=== PATIENT | male | born 1945 | race Asian ===

== ENCOUNTER 2021-04-17 10:50 | Emergency (ER) | payer OTHER ==
[~2021-04-17] VITALS: Ht 152.4 cm; Wt 68.0 kg
[2021-04-17 11:06] VITALS: BP 138/78
[2021-04-17] MEDS ORDERED: AMOX1TAB11 PO (11:34)
--- NOTE | 2021-04-17 11:36 | PHYS DOC ---
Past Medical History Additional Past Medical Histor: hearing loss Past Surgical History: No Surgical History General Adult EDM: Chief Complaint: EARACHE/EAR PAIN HPI: HPI: Patient is a 76 year old male who presents with left ear pain. Patient is N epali speaking, but has family members at bedside who aided in providing history. Patient states he has had left ear pain for approximately 5 months. He attributed his pain secondary to dental infection. He had the infected tooth extracted 10 days ago, but has had persistent left-sided ear pain since. Patient denies fever, chills, general weakness, nasal congestion, sore throat, persistent dental pain, drainage from affected ear. Review of Systems: Review of Systems: Constitutional: See HPI Eyes: Denies change in visual acuity, visual field deficits or discharge HENT: See HPI Respiratory: Denies cough or shortness of breath Cardiovascular: Denies chest pain, palpitations or edema GI: Denies abdominal pain, nausea, vomiting, bloody stools or diarrhea : Denies dysuria or hematuria Musculoskeletal: Denies back pain or joint pain Integument: Denies rash or other skin lesion Neurologic: Denies headache, focal weakness or sensory changes Heart Score: C/O Chest Pain: No Allergies: Allergies: Allergies Coded Allergies Type Severity Reaction Last Updated Verified No Known Drug Allergies 04/17/21 No Physical Exam: PE: Constitutional: Well developed, well nourished, no acute distress, non-toxic appearance. HENT: Normocephalic, atraumatic, bilateral ear canals without erythema or discharge, right tympanic membrane perforated without evidence of infection or other trauma, left tympanic membrane bulging and erythematous, oropharynx moist, no oral exudates, nose normal. [] Eyes: EOMI, conjunctiva normal, no discharge. Neck: Normal range of motion, no tenderness, supple. Skin: Warm, dry, no erythema, no rash. Neurologic: Alert and oriented x4, steady and symmetrical upright gait, no focal deficits noted. Current Patient Data: Vital Signs: Vital Signs Date Time Temp Pulse Resp B/P (MAP) Pulse Ox O2 Delivery O2 Flow Rate FiO2 04/17/21 11:06 97.7 88 21 138/78 (98) 97 Room Air 97.7 Course & Med Decision Making: Course & Med Decision Making Pertinent Labs and Imaging studies reviewed. (See chart for details) Patient is a 76-year-old male who presents with several month history of left ear pain. Patient had a tooth extraction performed 10 days ago, but his ear pain persists. Right tympanic membrane found to be ruptured, though it is unclear if this is new or chronic. Left ear exam consistent with otitis media. Patient provided with p.o. antibiotic course and instructed to follow-up with ENT regarding right TM rupture. Family at bedside explained findings and treatment plan to the patient, who verbalized understanding. Wendy Disclaimer: Wendy Disclaimer: This electronic medical record was generated, in whole or in part, using a voice recognition dictation system. Departure Departure Impression: Primary Impression: Left nonsuppurative otitis media Additional Impression: Rupture of right tympanic membrane Disposition: HOME / SELF CARE / HOMELESS Condition: STABLE Referrals: KATHLEEN MCGEE MD (PCP) VIRGINIA MURRAY MD Patient Instructions: Eardrum Perforation, [id number], Otitis Media, Adult, [id number] Additional Instructions: EMERGENCY DEPARTMENT GENERAL DISCHARGE INSTRUCTIONS Thank you for coming to [facility] Emergency Department (ED) today and trusting us with you care. We trust that you had a positive experience in our Emergency Department. If you wish to speak to the department management, you may call the director at . YOUR FOLLOW UP INSTRUCTIONS ARE FOLLOWS: 1. Follow up with your primary care doctor. If you do not have a primary doctor, please ask for a resource list of physicians or clinics that may be able to assist you with follow up care. 2. The emergency provider has interpreted your imaging studies, if any were ordered. The radiology medical imaging technician also reviewed them. If there is a change in the findings, you will be notified in 48 hours when at all possible. 3. If a lab test or culture has been done, your results will be reviewed and you will be notified if you need a change in treatment. 4. Follow instructions verbalized to you and refer to the printouts if needed. ADDITIONAL INSTRUCTIONS AND INFORMATION: 1. Your care today has been supervised by a physician who is specially trained in emergency care. Many problems require more than one evaluation for a complete diagnosis and treatment. We recommend that you schedule your follow up appointment as recommended to ensure complete treatment of you illness or injury. If you are unable to obtain follow up care and continue to have a problem, or if your condition worsens, we recommend that you return to the ED. 2. We are not able to safely determine your condition over the phone nor are we able to give sound medical advice over the phone. For these safety reasons, if you call for medical advice we will ask you to come to the ED for further evaluation. 3. If you have any questions regarding these discharge instructions please call the ED at . SAFETY INFORMATION: In the interest of safety, wellness, and injury prevention; we encourage you to wear your seat belt, if you smoke; quite smoking, and we encourage family to use a protective helmet for bicycling and other sporting events that present an increased risk for head injury. IF YOUR SYMPTOMS WORSEN OR NEW SYMPTOMS DEVELOP, OR YOU HAVE CONCERNS ABOUT YOUR CONDITION; OR IF YOUR CONDITION WORSENS WHILE YOU ARE WAITING FOR YOUR FOLLOW UP APPOINTMENT; EITHER CONTACT YOUR PRIMARY CARE DOCTOR, THE PHYSICIAN WHOSE NAME AND NUMBER YOU WERE GIVEN, OR RETURN TO THE ED IMMEDIATELY. Scripts Amoxicillin/Potassium Clav (AMOX TR-K CLV 875-125 MG TAB) 1 Each Tablet 1 TAB PO BID for 7 Days, #14 TAB 0 Refills Prov: OSKAR HIDALGO 04/17/21 OSKAR HIDALGO Apr 17, 2021 11:36
== END 2021-04-17 11:45 | disposition home or self-care (01) ==
LOC: ER 10:50
DX: H65.92 Unspecified nonsuppurative otitis media, left ear (principal); H72.91 Unspecified perforation of tympanic membrane, right ear
CPT/HCPCS: 99283